=== PATIENT | female | born 1980 | race Caucasian/White ===

== ENCOUNTER → 2021-09-13 09:03 | Outpatient (CLI) | payer MEDICARE, SELFPAY ==
[2021-09-13 12:22] LABS: Glucose 219 mg/dL (74-106)
[2021-09-14 13:46] LABS: C-Peptide < 0.1 ng/mL (1.1-4.4)
== END ==
PROVIDERS: PCP Family Medicine; Referring Provider Nurse Practitioner Family; Visit Provider Nurse Practitioner Family
DX: E11.649 Type 2 diabetes mellitus with hypoglycemia without coma (principal); Z79.4 Long term (current) use of insulin
CPT/HCPCS: 36415; 82947; 84681

== ENCOUNTER 2021-09-23 10:30 | Outpatient (RCR) | payer MEDICARE, SELFPAY | END 2021-09-29 23:59 | LOC: DC 10:30 | PROVIDERS: PCP Family Medicine; Visit Provider Nurse Practitioner Family | DX: E11.649 Type 2 diabetes mellitus with hypoglycemia without coma (principal); Z79.4 Long term (current) use of insulin | CPT/HCPCS: 97802; G0108 ==

== ENCOUNTER 2021-10-15 10:38 | Outpatient (RCR) | payer MEDICARE, SELFPAY | END 2021-10-29 23:59 | LOC: DC 10:38 | PROVIDERS: PCP Family Medicine; Visit Provider Nurse Practitioner Family | DX: E11.649 Type 2 diabetes mellitus with hypoglycemia without coma (principal); Z79.4 Long term (current) use of insulin | CPT/HCPCS: 97803 ==

== ENCOUNTER 2021-11-06 10:28 | Outpatient (RCR) | payer MEDICARE, SELFPAY | END 2021-11-06 13:28 | disposition home or self-care (01) | LOC: DC 10:28 | PROVIDERS: PCP Family Medicine; Visit Provider Nurse Practitioner Family | DX: E11.649 Type 2 diabetes mellitus with hypoglycemia without coma (principal); Z79.4 Long term (current) use of insulin | CPT/HCPCS: G0108 ==